=== PATIENT | male | born 1955 | race Caucasian/White ===

== ENCOUNTER 2017-10-21 10:33 | Inpatient (IN) ==
[2017-10-21] MEDS ORDERED: CeFAZolin Syr 2,000MG/20 ML 2,000 MG/20 ML SYRINGE IVPB ONE (11:13)
[2017-10-21] MEDS ORDERED: Ringers Solution, Lactated 1,000 ML IVC SCH ×2 (11:15→15:18)
--- NOTE | 2017-10-21 11:16 | Anesthesia Evaluation PreOp ---
Date of Encounter: 10/21/17 Time of Encounter: 11:14 - Past History Planned Operation: right total shoulder, reverse ball Cardiac History: HTN Pulmonary History: Denies Any Significant HX RESEARCH AND DEVELOPMENT MANAGER History: Denies Any Significant HX Other Medical History: Denies Any Significant HX, Other (Rheumatoid arthritis) Anesthesia History: No Prior Anesthetic Complications, Past Anesthesia ( bilateral shoulder scopes) Alcohol Use: none Drug use: none Medications and Allergies Carisoprodol [Soma] 350 mg PO TID 10/21/17 [History] Lisinopril [Zestril] 10 mg PO DAILY 10/21/17 [History] Tramadol HCl [Ultram] 100 mg PO Q8H PRN 10/21/17 [History] Zolpidem [Ambien] 10 mg PO HS 10/21/17 [History] 3 Allergy/AdvReac Type Severity Reaction Status Date / Time No Known Allergies Allergy Verified 10/21/17 10:54 - Meds/Allergy Pre-op Review Medications Reviewed: Yes Allergies Reviewed: Yes Beta Blockers on Current Med List: No Anesthesia Results - Labs Laboratory Tests 10/14/17 10/14/17 10/14/17 11:26 11:26 11:26 Hgb 16.0 Hct 48.8 PT 11.0 INR 1.0 APTT 31.3 Sodium 140 Potassium 4.6 H BUN 17 Creatinine 0.89 - Imaging EKG: report reviewed (SINUS RHYTHM LEFT AXIS DEVIATION INCOMPLETE RIGHT BUNDLE BRANCH BLOCK) Anesthesia Exam Selected Entries 10/21/17 10:58 Temperature 97.7 F Pulse Rate 75 Respiratory Rate 18 Blood Pressure 130/85 O2 Sat by Pulse Oximetry 95 Weight: 93kg NPO (# of Hours): 8 Pain Scale: 4 Pain Scale Used: Numeric (1 - 10) - HEENT Pupil (Motor): EOMI Mallampati: II Teeth: Normal Oral Opening: Greater than 3 - RESEARCH AND DEVELOPMENT MANAGER LOC: Oriented RESEARCH AND DEVELOPMENT MANAGER Motor: Normal RUE, Normal LUE, Normal RLE, Normal LLE, Normal Face RESEARCH AND DEVELOPMENT MANAGER Sensory: Normal: RUE, LUE, RLE, LLE, Face - Cardiac Rhythm: Regular Murmur: None - Pulmonary Breath Sounds: bilateral Clear Respiratory Effort: Symmetrical Anesthesia Assess/Plan ASA Score: 1 Modified [place] Scale for Level of Consciousness: Cooperative, oriented, and tranquil Anesthetic Plan: General (plus block) Monitoring Plan: Standard Monitors Recovery Plan: PACU
[2017-10-21] MEDS ORDERED: *HR* Midazolam HCl 2 MG/2 ML VIAL ONE (12:06)
[2017-10-21] MEDS ORDERED: Ondansetron 4 MG/2 ML VIAL ONE (12:07)
[2017-10-21] MEDS ORDERED: Dexamethasone 4 MG/ML VIAL ONE (12:07)
[2017-10-21] MEDS ORDERED: Lidocaine -MPF 2% 2 ML VIAL ONE (12:07)
[2017-10-21] MEDS ORDERED: *HR* FentaNYL (PF) 100 MCG/2 ML VIAL ONE ×2 (12:07→13:49)
[2017-10-21] MEDS ORDERED: *HR* Propofol 200 MG/20 ML VIAL IVP ONE (12:07)
[2017-10-21] MEDS ORDERED: *HR* Succinylcholine 200 MG/10 ML VIAL IVP ONE (12:07)
[2017-10-21] MEDS ORDERED: Lidocaine -MPF 4% 5 ML AMPUL ONE (12:21)
--- NOTE | 2017-10-21 12:35 | History & Physical Report ---
Date of Encounter: 10/21/17 Time of Encounter: 12:35 24 Hour HP Update - Instructions Instructions: If the History and Physical is less than 30 days old and was completed prior to A.M. admission and or procedure and has NOT been updated on calendar day of procedure please complete this update prior to performing procedure. - Update Patient reports changes in Medical Condition: No Changes in examination, assessment, or condition: No Changes in Medication: No Preop tests/diagnostics Reviewed: Yes Surgery Remains Indicated: Yes Consent for Planned Operative Procedure(s) Verified: Yes - Pre-Operative Checklist Preoperative Checklist Indicated: No Prophylactic Antibiotic Ordered: Yes Is VTE Prophylaxis Indicated?: Yes
[2017-10-21] MEDS ORDERED: Bupivacaine/Clonidine Syringe 1 EACH SYRINGE ONE (12:53)
[2017-10-21] MEDS ORDERED: Bupivacaine-MPF 0.25% 10 ML VIAL ONE (13:07)
--- NOTE | 2017-10-21 13:15 | Anesthesia Procedures ---
Date of Encounter: 10/21/17 Time of Encounter: 13:03 Procedures: Anesthesia - Nerve Block Procedure Date: 10/21/17 Time: 13:03 Surgical Procedure: right total shoulder Checklist: Correct Patient Identifier, Correct procedure, History checked Correct side: Right Monitor Applied: BP, Pulse Oximetry Supplemental Oxygen via Nasal Cannula (L/min): 2 Sedation: Versed (mg): 2 Sedation: Fentanyl (mcg): 100 Indication: Post Op Analgesia Block Type: Supraclavicular Catheter placed: Yes Sterile Technique: Yes Ultrasound used: Yes Anatomy identified: Yes Visual spread of Local: Yes Neuro Stimulation: Yes (at 0.3 no stim ) Blood on Needle Aspiration: No Smooth Injection of Local: Yes Pain with Injection of Local: No Prep: Chlorhexadine Needle: 22 x 50 mm Stimuplex Local: 0.25% Bupivicaine w/Clonidine 20 mcg/cc, Other (10ml for T2, and < 0.25% bup plain 6ml additional for SCP >) Volume (cc): 40 Number of Attempts: 1 Complications: None/effective block
[2017-10-21] MEDS ORDERED: *HR* Labetalol 20 MG/4 ML SYRINGE IVP PRN (13:16)
[2017-10-21] MEDS ORDERED: Ondansetron 4 MG/2 ML VIAL IVP ONE (13:16)
[2017-10-21] MEDS ORDERED: *HR* HYDROmorphone (PF) 1 MG/ML SYRINGE IVP PRN ×2 (13:16→15:18)
[2017-10-21] MEDS ORDERED: *HR* Promethazine 25 MG/ML VIAL IVP PRN (13:16)
--- NOTE | 2017-10-21 13:30 | Discharge Summary ---
Date of Encounter: 10/21/17 Time of Encounter: 17:56 - Discharge Diagnosis (1) Hypertension Priority: Secondary Status: Chronic Qualifiers: Hypertension type: unspecified Qualified Code(s): I10 - Essential (primary ) hypertension (2) Rheumatoid arthritis Priority: Secondary Status: Chronic Qualifiers: Rheumatoid arthritis location: unspecified site Rheumatoid factor presence : unspecified presence Qualified Code(s): M06.9 - Rheumatoid arthritis, unspecified (3) Obesity (BMI 30.0-34.9) Priority: Secondary Status: Chronic (4) Rotator cuff tear arthropathy of right shoulder Priority: Primary Status: Chronic (5) Status post reverse total arthroplasty of right shoulder Priority: Primary Status: Acute - Discharge Medications Home Medications: Carisoprodol [Soma] 350 mg PO TID 10/21/17 [History] Lisinopril [Zestril] 10 mg PO DAILY 10/21/17 [History] OxyCODONE Immed Rel [Roxicodone 5 MG] 5 mg PO Q4HR PRN #24 tablet 10/21/17 [Rx] Tramadol HCl [Ultram] 100 mg PO Q8H PRN 10/21/17 [History] Zolpidem [Ambien] 10 mg PO HS 10/21/17 [History] Allergies/Adverse Reactions: 3 Allergy/AdvReac Type Severity Reaction Status Date / Time No Known Allergies Allergy Verified 10/21/17 10:54 Primary care physician: Virgen Yates MD - Patient Status Disposition: Home, Self-Care Condition: Good Functional capacity at discharge: independent ambulation Overall status at discharge: patient is progressing back to baseline - Discharge Instructions Follow Up With: Cherelle Emery PAC [Physician Computer Repair Instructor] - 11/02/17 10:15 am Dariusz Rossi MD [Partnered Physician] - 11/23/17 5:05 pm Additional Instructions: Physical therapy appointment: [facility] 10/26/2017 @ 10am Discharge Instructions: Total Shoulder Please call [facility] ([phone]), your Primary Care Physician, or report to the Emergency Room if you have any of the following symptoms: Nausea, vomiting, fever greater that 101.5, swelling, chest pain, shortness of breath, increased pain/redness/drainage/odor for your incision site, numbness/ tingling, or any other concerning symptoms. ACTIVITY: Always keep your arm in the sling. Do not raise your arm away from your body. Do not use your arm to help with getting in or out of bed. No weight bearing permitted. Only perform those exercises given to you by your therapist. MEDICATIONS: Upon discharge resume your home medications. Take all the medications as prescribed. Take a stool softener if taking narcotic pain medications. Stool softeners are only effective if you drink enough fluids. Drink 6-8 glass of water or fluids a day, unless this is not allowed for another health problem. Despite using stool softeners, if you haven't had a bowel movement in 3 days, please switch to a gentle laxative. Gentle laxatives are sold over the counter. You should have a bowel movement within 24 hours, if not call the office. You will be discharged from the hospital with a prescription for pain medication. You are encouraged to decrease the use of narcotic pain medication as tolerated. Should you require a refill, please call the office. [facility] prescribes narcotic pain medication for only 4-6 weeks after surgery. If you require pain medication beyond this time period, you may be referred to your Primary Care Physician or to the Pain Clinic for further evaluation. Plan ahead for refills on pain medication as many narcotics either need to be picked up at the office or mailed. It is best to call 48-72 hours in advance of needing a prescription refill so you don't run out of medication. To help control the post-operative pain, you may take NSAIDs (Aleve,Advil, Motrin, Ibuprofen, Naprosyn) or Tylenol as prescribed on the bottle in addition to the pain medication. WOUND CARE: Leave the dressing on for 7-10 days. You may change the dressing if it becomes saturated greater than 50%. Do not get the dressing wet at anytime. Wash your hands with antibacterial soap, rinse and dry prior to any wound care. If you have erika the visiting nurse or rehab facility can remove the stapes 10-14 days after surgery and place steri-strips across the wound. Leave the steri-strips in place until they fall off on their own. You may let water from the shower run on top of the steri-strips. If you do not have a visiting nurse or rehab facility, you will need to return to the office at 10-14 days for the erika to be removed. If you have itching or redness around the dressing call the office. FOLLOW-UP: Please follow up with your surgeon in the orthopedic clinic, as scheduled - Hospital Course Hospital course: Mr. Stanley is a 62 year old male Status post right total shoulder. Discharge hematocrit 28 patient discharged same day stable condition - Time Spent with Patient Total time spent providing and/or coordinating discharge services:
[2017-10-21] MEDS ORDERED: EPHEDrine 50 MG/ML VIAL ONE (13:45)
[2017-10-21] MEDS ORDERED: *HR* HYDROmorphone 2 MG/ML SYRINGE ONE (13:51)
[2017-10-21] MEDS ORDERED: *HR* Vasopressin 20 UNIT/ML VIAL ONE (14:00)
--- NOTE | 2017-10-21 14:25 | Orthopedic Operative Note ---
Date of procedure: 10/21/17 Pre-op diagnosis: right shoulder cuff tear arthropathy Post-op diagnosis: same Procedure: Procedure: Total Shoulder Replacment Reverse, Right Estimated blood loss: 100 cc Hardware: Metal and polyethylene replacement: Arthrex large glenoid baseplate , 2 4.5 screws. 1 6.5 screw, 42+4 glenosphere, 10 humeral stem, poly insert 3 9 metal Exam Under anesthesia:full motion and no instability Procedural Notes: Operative procedure: The patient was brought to the operating room and placed on the operating room table. After general anesthesia was administered the operative shoulder was examined. Findings were noted. The patient was placed in the modified beachchair position. All pressure points were padded appropriately. And the head was stabilized in the neutral position. The operative extremity was prepped and draped in the sterile surgical fashion. The patient received IV antibiotics prior to skin incision. A standard deltopectoral approach was made to the operative shoulder. Incision was made to the skin and subcutaneous tissue,hemo stasis was obtained with Bovie cautery. Using careful blunt dissection the cephalic vein was identified and mobilized medially. The deltopectoral interval was developed and the clavipectoral fascia was incised. The subscap was released off the lesser tuberosity and tagged with #2 FiberWire suture subscap was irreparable. The humerus was dislocated patient noted to have irreparable tear supraspinatus tendon, and the humeral cut was made along the anatomic neck. Anterior and posterior Bankart retractors were placed to expose the glenoid. The glenoid guide was seated and the centering hole was made. It was reamed with the appropriate reamer. The large baseplate was seated and secured with (2) 4.5 screws and one 6.5 screw. The baseplate was irrigated and dried and the 42+4 Glenosphere was seated and secured with the Miles taper. The Miles taper was tested and found to be secure the humerus was redislocated and prepared with the diaphyseal reamers, followed by a broaching process up to the appropriate size 10 in the patient's anatomic version. The metaphyseal reamer was then utilized. Trial reduction found the shoulder to be relocatable. Trial components were removed and the 10 stem was impacted in place in the patient's anatomic version. Trial reduction revealed excellent motion and stability with a +9 metal and a 3 Areli trials were removed real implants were seated and secured. Shoulder was reduced. The shoulder had excellent motion and excellent stability and no evidence of dislocation. The deep tissue was irrigated with pulse irrigation. The deltopectoral interval was closed with a running #1 PDS suture, subcutaneous tissue was irrigated and closed with 0 PDS suture, the skin was closed with Dermabond. The patient was placed in a sterile dressing, abduction brace and extubated. The patient was then transferred to the recovery room in stable condition. Anesthesia: GETA Surgeon: Dariusz Rossi Condition: stable Disposition: PACU
--- NOTE | 2017-10-21 14:56 | Anesthesia Evaluation Post Op ---
Date of Encounter: 10/21/17 Time of Encounter: 14:54 - Vital Signs Vital Signs: vss - Lungs Lungs: Clear Ascult./Percussion - Airway Airway: Non-obstructed - Cardiovascular Baseline Rhythm - Mental Status Mental Status: Alert & Oriented, Answers Appropriately - Pain Pain Scale used: De Jesus-Castro (Faces) (0) - Nausea Vomiting Nausea Vomiting: Not Present - Hydration Hydration: Ice chips - Discharge PostOp Status: Transfer Patient to floor
[2017-10-21 14:57] LABS: Hematocrit 27.2 % (37.5-50.1); Hemoglobin 8.8 g/dL (12.9-16.9)
[2017-10-21] MEDS ORDERED: Naloxone 0.4 MG/ML INJ IVP PRN (15:18)
[2017-10-21] MEDS ORDERED: Temazepam 15 MG CAPSULE PO PRN (15:18)
[2017-10-21] MEDS ORDERED: *HR* OxyCODONE Immed Rel 5 MG TABLET PO PRN ×2 (15:18)
[2017-10-21] MEDS ORDERED: Ondansetron 4 MG/2 ML VIAL IVP PRN (15:18)
[2017-10-21] MEDS ORDERED: Carisoprodol 350 MG TABLET PO SCH (15:18)
[2017-10-21] MEDS ORDERED: Sennosides 8.6 MG TABLET PO PRN (15:18)
[2017-10-21] MEDS ORDERED: MOM Conc 10 ML UD.LIQ PO PRN (15:18)
[2017-10-21] MEDS ORDERED: CeFAZolin Premix DUPLEX 2,000 MG/50 ML BAG IVPB SCH (16:00)
[2017-10-21] MEDS ORDERED: *HR* Enoxaparin 30 MG/0.3 ML SYRINGE SQ SCH ×3 (16:00→18:00)
[2017-10-21 17:03] VITALS: BP 107/72
== END 2017-10-21 17:51 | disposition home or self-care (01) | DRG 483 ==
LOC: SAMDAY 10:33 → 3NENU 15:07
PROVIDERS: ADMIT Orthopaedic Surgery; ATTEND Orthopaedic Surgery